=== PATIENT | female | born 1990 | race Caucasian/White ===

== ENCOUNTER 2021-09-02 19:00 | Outpatient (CLI) | payer OTHER, SELFPAY ==
[2021-09-02 19:58] LABS: Influenza A QL RT-PCR Negative (Negative); Influenza B QL RT-PCR Negative (Negative); SARS-CoV-2 RNA PCR Negative (Negative)
== END 2021-09-02 19:01 | disposition home or self-care (01) ==
LOC: CHSLAB 19:04
PROVIDERS: PCP Internal Medicine; Visit Provider Internal Medicine
DX: J06.9 Acute upper respiratory infection, unspecified (principal); Z20.822 Contact with and (suspected) exposure to COVID-19
CPT/HCPCS: 87081; 87502; 87880; C9803; U0003; U0005

== ENCOUNTER 2021-12-03 17:13 | Emergency (ER) | payer OTHER, SELFPAY ==
[2021-12-03 17:21] VITALS: BP 135/95; PULSE 89; RESP 16; TEMP 36.6; O2SAT 97
--- NOTE | 2021-12-03 17:34 | ED.URI ---
HPI - URI/Sore Throat General Chief Complaint: Upper Respiratory Infection Stated Complaint: Cough/Sore Throat Time Seen by Provider: 12/03/21 17:34 Source: patient Mode of arrival: ambulatory Limitations: no limitations History of Present Illness HPI Narrative: 30-year-old female presents with cough, fatigue, congestion, headaches, body aches since yesterday. Reports possible fever but she did not check her temperature. Started taking TheraFlu today. Denies shortness of breath and chest pain. Reviewed and negative except as noted above. Related Data Home Medications Medication Instructions Recorded Confirmed No Home Medications 07/22/19 10/07/19 Allergies Allergy/AdvReac Type Severity Reaction Status Date / Time No Known Allergies Allergy Verified 12/03/21 17:46 Review of Systems Review of Systems: CONSTITUTIONAL: Reports fever, chills, or sweats. EYES: Denies visual changes, redness, or discharge. ENT: Reports rhinorrhea, congestion, sore throat. Denies otalgia. CARDIOVASCULAR: Denies chest pain, palpitations, or edema. RESPIRATORY: Reports cough. Denies dyspnea. GASTROINTESTINAL: Denies abdominal pain, nausea, vomiting, or diarrhea. GENITOURINARY: Denies dysuria or hematuria. SKIN: Denies rash or itching. MUSCULOSKELETAL: Denies back pain, joint pain, or myalgia. NEUROLOGIC: Reports headache. Denies numbness, or weakness. PSYCHIATRIC: Denies anxiety or depression. All other systems reviewed are negative, except as documented in HPI. PMFSH Comments At time of signature, agree with nursing past medical, surgical, social and family history. There is no relevant family history pertinent to the presenting complaint. Exam Narrative: GENERAL: This is a well-nourished, well-developed patient. Patient ill-appearing but in no distress. HEAD: normocephalic, atraumatic. EYES: PERRL. Sclera clear/white. Vision is grossly intact. EARS: External ears normal, auditory canals clear and without drainage, TMs normal without perforation. Hearing grossly intact. NOSE: External nose normal, clear nasal drainage. THROAT: Mucous membranes moist, mild erythema to posterior pharynx. NECK: Neck supple, non-tender without lymphadenopathy, masses or thyromegaly. CARDIOVASCULAR: Regular rate and rhythm without murmurs, gallops, or rubs. RESPIRATORY: Clear to auscultation. Breath sounds equal bilaterally. No wheezes, rales, or rhonchi. SKIN: warm, Dry, intact with no suspicious lesions or rash, good texture and turgor. NEURO: awake, alert, and oriented to person, place and time. There were no obvious focal neurologic abnormalities. EXTREMITIES: Normal range of motion. Course Course Level of Care: Express Care Visit Vital Signs Vital signs: Vital Signs Temperature 36.6 C 12/03/21 17:21 Pulse Rate 89 12/03/21 17:21 Respiratory Rate 16 12/03/21 17:21 Blood Pressure 135/95 H 12/03/21 17:21 Pulse Oximetry 97 12/03/21 17:21 Temperature 36.6 C 12/03/21 17:21 Pulse Rate 89 12/03/21 17:21 Respiratory Rate 16 12/03/21 17:21 Blood Pressure 135/95 H 12/03/21 17:21 Pulse Oximetry 97 12/03/21 17:21 Reviewed MDM - URI/Sore Throat MDM Narrative Medical decision making narrative: Patient is aware of diagnosis, understands and agrees to treatment plan. Anticipatory guidance given. Patient agrees to follow-up as directed and is aware of reasons to seek care at the emergency department. Portions of this record may have been created with voice recognition software Differential Diagnosis Differential diagnosis: Likely upper respiratory infection, sinusitis, viral infection, influenza and pharyngitis Lab Data Labs: Influenza A Screen Positive Reference Range: Negative Influenza B Screen Negative Reference Range: Negative Discharge Plan Discharge Clinical Impression: Inf
== END 2021-12-03 17:57 | disposition home or self-care (01) ==
PROVIDERS: Emergency Provider Nurse Practitioner Family
DX: J10.1 Influenza due to other identified influenza virus with other respiratory manifestations (principal); Z85.820 Personal history of malignant melanoma of skin
CPT/HCPCS: 87804; 99213; G0463

== ENCOUNTER 2022-03-30 18:30 | Emergency (ER) | payer OTHER, SELFPAY ==
[2022-03-30 18:40] VITALS: BP 130/91; PULSE 83; RESP 16; TEMP 36.4; O2SAT 98
--- NOTE | 2022-03-30 19:02 | ED.GENADULT ---
HPI - General Adult General Chief complaint: Nausea/Vomiting/Diarrhea Stated complaint: Diarhea, headache, stomach pains Source: patient Mode of arrival: ambulatory Limitations: no limitations History of Present Illness HPI narrative: Patient presents for evaluation of sick symptoms after recent COVID exposure. She indicates she was exposed to COVID 3 days ago. She now reports headache and diarrhea as of yesterday. She also has fatigue. No fever, chills, nausea, vomiting, sore throat, cough, shortness of breath. Her son is here being evaluated for sore throat and sinus congestion. No personal hx of COVID. She has received her COVID vaccination. She has tried Peptobismol and immodium which she thinks may be helping. No additional complaints or concerns. Related Data Home Medications Medication Instructions Recorded Confirmed bupropion HCl 150 mg 24 hr tablet, 150 mg PO DAILY 03/30/22 03/30/22 extended release fluoxetine 10 mg capsule 10 mg PO DAILY 03/30/22 03/30/22 Allergies Allergy/AdvReac Type Severity Reaction Status Date / Time No Known Allergies Allergy Verified 12/03/21 17:46 Review of Systems Review of Systems: CONSTITUTIONAL: Reports fatigue. Denies fever, chills, or sweats. EYES: Denies visual changes, redness, or discharge. ENT: Denies rhinorrhea, congestion, sore throat, or otalgia. CARDIOVASCULAR: Denies chest pain, palpitations, or edema. RESPIRATORY: Denies cough or dyspnea. GASTROINTESTINAL: Reports diarrhea. Denies abdominal pain, nausea, vomiting GENITOURINARY: Denies dysuria or hematuria. SKIN: Denies rash or itching. MUSCULOSKELETAL: Denies back pain, joint pain, or myalgia. NEUROLOGIC: Reports headache. Denies numbness, dizziness, or weakness. PSYCHIATRIC: Denies anxiety or depression. [facility] S[facility] TO [facility] Past Medical History Medical History (Updated 03/30/22 @ 19:43 by Mike Arguelles, KESHIA, CHIKIS) No pertinent past medical history Surgical History Surgical History No pertinent past surgical history Family History Family History Mother Family history non-contributory Social History Social History Alcohol intake: never Substance use: never Living arrangements: with family Gender identity (if verbalized by the patient): Female Sexual Orientation (if Verbalized by the Patient): Straight or Heterosexual Spiritual care concerns: No Exam Narrative: GENERAL: Well-appearing, well-nourished, and in no acute distress. HEAD: Normocephalic, atraumatic. EYES: PERRLA and EOMI. ENT: Nares clear, no rhinorrhea or epistaxis. Mucous membranes moist. Oropharynx without tonsillar hypertrophy exudate or other lesions. Bilateral TMs pearly davis nonbulging NECK: Supple. No adenopathy or masses. No carotid bruits or JVD CHEST: Clear to auscultation. No respiratory distress. No wheezes rales or rhonchi HEART: Regular rate and rhythm. No murmur heard. Normal peripheral pulses. ABDOMEN: Soft, nontender, nondistended, normal active bowel sounds. EXTREMITIES: Normal range of motion. No edema. SKIN: Warm, dry, no rash. NEURO: No focal deficits. Alert and oriented x3. PSYCH: Normal mood and affect. Course Course Emergency Course: This is a 31-year-old female who presented with reports of headache and diarrhea. She was recently exposed to COVID. Her son is being evaluated here and tested positive for COVID. Patient's COVID here was negative but I think that this is a false negative or perhaps too early for it to show as positive. History and clinical presentation is consistent with COVID. I will write her prescription for paxlovid that and advised that she repeat her COVID test tomorrow and the next day. She is only to fill and start medication if she tests positive for COVID tomorrow or next day. Remain off of w
== END 2022-03-30 19:48 | disposition home or self-care (01) ==
PROVIDERS: Emergency Provider Nurse Practitioner
DX: Z20.822 Contact with and (suspected) exposure to COVID-19 (principal)
CPT/HCPCS: 87426; 99213; C9803; G0463

== ENCOUNTER 2022-10-24 18:46 | Emergency (ER) | payer OTHER, SELFPAY ==
[2022-10-24 18:56] VITALS: BP 138/89; PULSE 76; RESP 16; TEMP 36.4; O2SAT 98
--- NOTE | 2022-10-24 19:10 | ED.URI ---
HPI - URI/Sore Throat General Chief Complaint: Upper Respiratory Infection Stated Complaint: sore throat Source: patient and RN notes reviewed History of Present Illness HPI Narrative: 31-year-old female presents to urgent care with complaints of sore throat that started last night and got worse this morning. Patient states she has been spending most of her day in bed drinking tea and sucking on a throat lozenge with moderate relief. Patient denies any fevers, chills, vomiting, diarrhea, chest pain, or shortness of breath. Patient states she has a slight tension headache but nothing significant. Related Data Home Medications Medication Instructions Recorded Confirmed bupropion HCl 150 mg 24 hr tablet, 150 mg PO DAILY 03/30/22 03/30/22 extended release pantoprazole 40 mg tablet,delayed mg PO 10/24/22 release Allergies Allergy/AdvReac Type Severity Reaction Status Date / Time No Known Allergies Allergy Verified 12/03/21 17:46 Review of Systems Review of Systems: CONSTITUTIONAL: Denies fever, chills, or sweats. EYES: Denies visual changes, redness, or discharge. ENT: Reports sore throat CARDIOVASCULAR: Denies chest pain, palpitations, or edema. RESPIRATORY: Slight cough GASTROINTESTINAL: Denies abdominal pain, nausea, vomiting, or diarrhea. GENITOURINARY: Denies dysuria or hematuria. SKIN: Denies rash or itching. MUSCULOSKELETAL: Denies back pain, joint pain, or myalgia. NEUROLOGIC: Reports headache [facility] Past Medical History Medical History (Updated 10/24/22 @ 19:16 by Dixie Mcgovern, JOHN) No pertinent past medical history Surgical History Surgical History No pertinent past surgical history Family History Family History Mother Family history non-contributory Social History Social History Alcohol intake: never Substance use: never Living arrangements: with family Gender identity (if verbalized by the patient): Female Sexual Orientation (if Verbalized by the Patient): Straight or Heterosexual Spiritual care concerns: No Comments At the time of my signature, I reviewed and agree with the nursing past medical, surgical, social, and family history. There is no relevant family history pertinent to the patient complaint. Exam Narrative: GENERAL: This is a well-nourished, well-developed patient, in no apparent distress. HEAD: normocephalic, atraumatic. EYES: PERRL. Sclera clear/white. Vision is grossly intact. EARS: External ears normal, auditory canals clear and without drainage, TMs normal without perforation. Hearing grossly intact. NOSE: External nose normal with no obvious nasal discharge, nares without redness, no rhinorrhea. THROAT: Mucous membranes moist, posterior pharynx clear. NECK: Neck supple, non-tender without lymphadenopathy, masses or thyromegaly. CARDIOVASCULAR: Regular rate and rhythm without murmurs, gallops, or rubs. RESPIRATORY: Clear to auscultation. Breath sounds equal bilaterally. No wheezes, rales, or rhonchi. GASTROINTESTINAL: Abdomen soft, non-tender, nondistended. Bowel sounds are active. No hepato-splenomegaly, or palpable masses. No guarding. SKIN: warm, intact with no suspicious lesions or rash, good texture and turgor. NEURO: awake, alert, and oriented to person, place and time. There were no obvious focal neurologic abnormalities. Course Course Level of Care: Express Care Visit Vital Signs Vital signs: Vital Signs Temperature 97.6 F 10/24/22 18:56 Pulse Rate 76 10/24/22 18:56 Respiratory Rate 16 10/24/22 18:56 Blood Pressure 138/89 10/24/22 18:56 Pulse Oximetry 98 10/24/22 18:56 Oxygen Delivery Room Air 10/24/22 18:56 Temperature 97.6 F 10/24/22 18:56 Pulse Rate 76 10/24/22 18:56 Respiratory Rate 16 10/24/22 18:56 Blood Pressure
== END 2022-10-24 19:20 | disposition home or self-care (01) ==
PROVIDERS: Emergency Provider Nurse Practitioner Family; PCP Internal Medicine
DX: J02.9 Acute pharyngitis, unspecified (principal)
CPT/HCPCS: 87081; 87880; 99213; G0463

== ENCOUNTER 2023-11-09 15:38 | Emergency (ER) | payer OTHER, SELFPAY ==
[2023-11-09 15:44] VITALS: BP 146/86; PULSE 117; RESP 16; TEMP 37.4; O2SAT 100
--- NOTE | 2023-11-09 16:35 | ED.URI ---
HPI - URI/Sore Throat General Chief Complaint: Upper Respiratory Infection Stated Complaint: right ear History of Present Illness HPI Narrative: Pt is a 32 y/o female, presents to with one week hx of uri syptoms that began with nasal congestion, rhinorrhea and post nasal drip. she has a mild cough that is non productive. She denies associated fevers or chills and she has no known sick contacts or COV exposures. today she woke with muffled hearing in the right ear without associated otorrhea or otalgia. She is scheduled to fly out tomorrow and then take a cruise and wanted to ensure she was not contagious before departing, prompting her visit. She denies chance of . she is not taking any medications for symptom relief Related Data Home Medications Medication Instructions Recorded Confirmed bupropion HCl 150 mg 24 hr tablet, 150 mg PO DAILY 03/30/22 11/09/23 extended release pantoprazole 40 mg tablet,delayed 40 mg PO DAILY 10/24/22 11/09/23 release Allergies Allergy/AdvReac Type Severity Reaction Status Date / Time No Known Allergies Allergy Verified 11/09/23 16:06 Review of Systems ENT: Comments: refer to HPI Respiratory: Comments: refer to HPI Gastrointestinal: Comments: Diarrhea started last HS, no diarrhea today. No NV, no hematochezia or melena. [facility] Past Medical History Medical History (Updated 11/09/23 @ 16:41 by KONRAD SeniorP) No pertinent past medical history Surgical History Surgical History No pertinent past surgical history Family History Family History Mother Family history non-contributory Social History Social History Alcohol intake: never Substance use: never Living arrangements: with family Gender identity (if verbalized by the patient): Female Sexual Orientation (if Verbalized by the Patient): Straight or Heterosexual Spiritual care concerns: No Exam Const: General: healthy appearing, no acute distress and alert Nutritional Appearance: well nourished and obese Orientation/consciousness: patient oriented x3 Limitations: no limitations HENMT: Head: normal to inspection Ears: external ears normal and TM abnormal (bilateral serous effusion, no erythema or purulence noted. the) Face and sinus: normal facial exam and sinuses nontender Mouth: Yes Normal oral and palatal mucosa present, Yes lip normal and Yes moist mucous membranes Throat: posterior oropharynx normal and uvula midline Other: right TM is bulging, the left tm is retracted. Eyes: Conjunctivae: conjunctivae normal Pupils: Equal, round and reactive pupils present EOM: EOMs intact bilaterally Neck: Neck: normal visual inspection, no lymphadenopathy and no meningeal signs Resp: Effort & Inspection: normal respiratory effort Auscultation: clear to auscultation bilaterally Cardio: Rate: regular rate Rhythm: regular rhythm GI: GI Palp: Yes Soft to palpation, No Tenderness to palpation present (GI), No Guarding due to palpation present (GI), No Rigid due to palpation, No Hernia present, No Palpable mass present and No Rebound tenderness present Back/Spine/Pelvis: Back: no CVA tenderness Skin: General skin exam: normal color Rashes: no rashes Wounds: no wounds Neuro: General: patient oriented x3, moves all extremities, no meningeal signs, no focal motor deficits and CN's II-XI intact bilaterally Cranial nerves: Yes Nystagmus not present Speech: normal speech Extrem: General: normal to inspection Course Course Emergency Course: influenza, COV and strep negative Level of Care: Express Care Visit ([id number]) Vital Signs Vital signs: Vital Signs Temperature 37.4 C 11/09/23 15:44 Pulse Rate 117 H 11/09/23 15:44 Respiratory Rate 16 11/09/23 15:44 Blood Pressure
== END 2023-11-09 16:45 | disposition home or self-care (01) ==
PROVIDERS: Emergency Provider Nurse Practitioner Family; PCP Internal Medicine
DX: H65.01 Acute serous otitis media, right ear (principal); Z20.822 Contact with and (suspected) exposure to COVID-19
CPT/HCPCS: 87081; 87426; 87804; 87880; 99213; G0463

== ENCOUNTER 2023-11-25 10:57 | Outpatient (CLI) | payer OTHER, MEDICAID, SELFPAY ==
[2023-11-25 11:25] LABS: Basophils Absolute Auto 0.03 K/mm3 (0.00-0.10); Basophils Percent Auto 0.4 % (0.0-1.0); Eosinophils Absolute Auto 0.13 K/mm3 (0.02-0.50); Eosinophils Percent Auto 1.6 % (1.0-6.0); Hemoglobin 10.6 g/dL (12.0-15.0); Immature Granulocyte Absolute 0.08 K/mm3 (0.00-0.00); Immature Platelet Fraction Pct 5.1 % (1.0-7.0); Lymphocytes Absolute Auto 2.58 K/mm3 (1.10-4.50); Lymphocytes Percent Auto 32.5 % (18.0-42.0); Mean Corpuscular HGB Conc 30.3 g/dL (32-36); Mean Corpuscular Hemoglobin 24.2 pg (27.0-31.0); Mean Corpuscular Volume 79.9 fL (78.0-102.0); Mean Platelet Volume 10.2 fl (9.2-11.8); Monocytes Absolute Auto 0.39 K/mm3 (0.10-0.90); Monocytes Percent Auto 4.9 % (2.0-11.0); Neutrophils Absolute Auto 4.73 K/mm3 (1.70-7.20); Neutrophils Percent Auto 59.6 % (50.0-70.0); Platelet Count Result 288 K/mm3 (150-420); Red Blood Count 4.38 M/mm3 (4.20-5.40); Red Cell Distribution Width 17.5 % (11.6-14.4); White Blood Count 7.9 K/mm3 (4.8-10.8)
[2023-11-25 11:36] LABS: Appearance Urine Clear (Clear); Bilirubin Urine Negative (Negative); Blood Urine 2+ (Negative); Color Urine Light Yellow (Yellow); Glucose Urine UA Negative (Negative); Ketones Urine Negative (Negative); Leukocyte Esterase Ur Negative (Negative); Nitrate Urine Negative (Negative); Protein Urine Negative (Negative); Specific Grav Ur <= 1.005 (1.010-1.020); Urobilinogen Urine 0.2 mg/dL (0.2-1.0)
[2023-11-25 11:51] LABS: Alanine Aminotransferase 44 U/L (14-59); Albumin Level 4.3 g/dL (3.4-5.0); Alkaline Phosphatase 75 U/L (46-116); Anion Gap 13 mmol/L (8-16); Aspartate Amino Transferase 26 U/L (15-37); Bilirubin,Total 0.7 mg/dL (0.00-1.00); Blood Urea Nitrogen 10 mg/dL (7-18); Calcium 8.8 mg/dL (8.5-10.1); Carbon Dioxide 26 mmol/L (21-32); Chloride 102 mmol/L (98-108); Cholesterol 195 mg/dL (0-200); Estimated Glomerular Filt Rate > 60; Glucose 97 mg/dL (70-99); HDL Direct 53 mg/dL (40-60); LDL Cholesterol Calculated 96 mg/dL (<130); Osmolality Calculated 291 mOsm/kg (285-295); Potassium 4.2 mmol/L (3.5-5.1); Sodium 141 mmol/L (136-145); Thyroid Stimulating Hormone 2.69 uIU/mL (0.36-3.74); Total Protein 8.2 g/dL (6.4-8.2); Triglycerides 232 mg/dL (0-150)
[2023-11-25 12:03] LABS: Add Urine Microscopic? YES; Bacteria Urine 1+ /hpf; Squamous Epithelial Cell Urine Few /hpf (Few); WBC Urine None seen /hpf (0-3)
== END 2023-11-25 10:58 | disposition home or self-care (01) ==
PROVIDERS: PCP Internal Medicine; Visit Provider Internal Medicine
DX: Z00.00 Encounter for general adult medical examination without abnormal findings (principal)
CPT/HCPCS: 36415; 80053; 80061; 81001; 84443; 85025; 85055

== ENCOUNTER 2024-05-31 19:17 | Emergency (ER) | payer OTHER, SELFPAY ==
[2024-05-31 19:24] VITALS: BP 150/86; PULSE 102; RESP 16; TEMP 36.1; O2SAT 99
--- NOTE | 2024-05-31 20:18 | ED.URI ---
HPI - URI/Sore Throat General Chief Complaint: Upper Respiratory Infection Stated Complaint: Cough/Diarrhea Time Seen by Provider: 05/31/24 20:07 Source: patient and RN notes reviewed Mode of arrival: ambulatory Limitations: no limitations History of Present Illness HPI Narrative: Patient presents today with 2 week history of productive cough and postnasal drainage. Denies fever, congestion, rhinorrhea, sore throat. No history of asthma or COPD. She has tried no [id number] treatment prior to arrival. Patient works at a local [employer] and has to wear a respirator at work every day. States this is making it difficult and causes her to have coughing episodes. Related Data Home Medications Medication Instructions Recorded Confirmed bupropion HCl 150 mg 24 hr tablet, 150 mg PO DAILY 03/30/22 11/09/23 extended release pantoprazole 40 mg tablet,delayed 40 mg PO DAILY 10/24/22 11/09/23 release Allergies Allergy/AdvReac Type Severity Reaction Status Date / Time No Known Allergies Allergy Verified 11/09/23 16:06 Review of Systems Review of Systems: CONSTITUTIONAL: Denies body aches, fever, chills, or sweats. EYES: Denies visual changes, redness, or discharge. ENT: Denies rhinorrhea, congestion, sore throat, or otalgia.+ postnasal drip CARDIOVASCULAR: Denies chest pain, palpitations, or edema. RESPIRATORY: Denies dyspnea.+ cough GASTROINTESTINAL: Denies abdominal pain, nausea, vomiting, or diarrhea. GENITOURINARY: Denies dysuria or hematuria. SKIN: Denies rash, itching, or wounds. MUSCULOSKELETAL: Denies back pain, joint pain, or myalgia. NEUROLOGIC: Denies headache, numbness, tingling, or weakness. PSYCH: Denies depression or anxiety. [facility] Past Medical History Medical History No pertinent past medical history Surgical History Surgical History No pertinent past surgical history Family History Family History Mother Family history non-contributory Social History Social History Alcohol intake: never Substance use: never Living arrangements: with family Gender identity (if verbalized by the patient): Female Sexual Orientation (if Verbalized by the Patient): Straight or Heterosexual Spiritual care concerns: No Comments At time of signature, I have reviewed and agree with nursing past medical, surgical, social and family history unless otherwise noted. Please see nursing chart for further information. There is no relevant family history pertinent to the presenting complaint Exam Narrative: GENERAL: Well-appearing, well-nourished, and in no acute distress. HEAD: Normocephalic, atraumatic. EYES: EOMI. No redness or drainage. Conjunctivae normal. ENT: Mucous membranes pink and moist. Nares clear. No rhinorrhea. TMs normal bilaterally. Throat normal. Uvula midline. NECK: Normal AROM. Supple. No lymphadenopathy. CHEST: No respiratory distress. Expiratory wheezing in the right upper and bilateral lower lobes HEART: Regular rate and rhythm. No murmur appreciated. EXTREMITIES: Normal range of motion. No edema. SKIN: Warm, dry, no rash. Capillary refill normal. Normal skin turgor. NEURO: No focal deficits. Alert and oriented x3. Gait steady. PSYCH: Normal affect. No signs of depression or anxiety. Course Course Level of Care: Express Care Visit Vital Signs Vital signs: Vital Signs Temperature 97.0 F L 05/31/24 19:24 Pulse Rate 102 H 05/31/24 19:24 Respiratory Rate 16 05/31/24 19:24 Blood Pressure 150/86 H 05/31/24 19:24 Pulse Oximetry 99 05/31/24 19:24 Oxygen Delivery Room Air 05/31/24 19:24 Temperature 97.0 F L 05/31/24 19:24 Pulse Rate 102 H 05/31/24 19:24 Respiratory Rate 16 05/31/24 19:24 B
== END 2024-05-31 20:23 | disposition home or self-care (01) ==
PROVIDERS: Emergency Provider Nurse Practitioner; PCP Internal Medicine
DX: J40 Bronchitis, not specified as acute or chronic (principal); J32.9 Chronic sinusitis, unspecified
CPT/HCPCS: 99213; G0463

== ENCOUNTER 2024-10-09 11:21 | Emergency (ER) | payer OTHER, SELFPAY ==
[2024-10-09 11:31] VITALS: BP 143/87; PULSE 90; RESP 18; TEMP 36.5; O2SAT 100
[2024-10-09 11:49] LABS: EDSTREPNEGPOS1 Negative (Negative)
--- NOTE | 2024-10-09 11:58 | ED_ITS ---
HPI - General Adult General Chief complaint: Upper Respiratory Infection Stated complaint: Sore Throat/Left Ear Problem/Right Eye/Cough Source: patient Mode of arrival: ambulatory Limitations: no limitations History of Present Illness HPI narrative: Patient presents for evaluation of sick symptoms for last 4 days. Symptoms include cough, sinus congestion, thick yellow drainage, sore throat, muffled hearing and left ear pain. No fever, nausea, vomiting, diarrhea or SOB. She does vape. She is not aware of any sick contacts. She has tried flonase and sudafed for her symptoms. Related Data Home Medications ?Medication ?Instructions ?Recorded ?Confirmed ?Last Taken ?Type bupropion HCl 150 mg 24 hr tablet, 150 mg PO DAILY 03/30/22 11/09/23 Unknown History extended release pantoprazole 40 mg tablet,delayed 40 mg PO DAILY 10/24/22 11/09/23 Unknown History release Allergies Allergy/AdvReac Type Severity Reaction Status Date / Time No Known Allergies Allergy Verified 11/09/23 16:06 Review of Systems Review of Systems: CONSTITUTIONAL: Denies fever, chills, or sweats. EYES: Denies visual changes, redness, or discharge. ENT: Reports sinus congestion,thick yellow nasal drainage, muffled hearing, sore throat, left-sided otalgia CARDIOVASCULAR: Denies chest pain, palpitations, or edema. RESPIRATORY: Reports cough. Denies shortness of breath. GASTROINTESTINAL: Denies abdominal pain, nausea, vomiting, or diarrhea. GENITOURINARY: Denies dysuria or hematuria. SKIN: Denies rash or itching. MUSCULOSKELETAL: Denies back pain, joint pain, or myalgia. NEUROLOGIC: Denies headache, numbness, dizziness, or weakness. PSYCHIATRIC: Denies anxiety or depression. [facility] Past Medical History Medical History No pertinent past medical history Surgical History Surgical History No pertinent past surgical history Family History Family History Mother Family history non-contributory Social History Social History Smoking status: Current every day smoker Tobacco type: e-cigarettes/vaping Alcohol intake: never Substance use: never Living arrangements: with family Gender identity (if verbalized by the patient): Female Sexual Orientation (if Verbalized by the Patient): Straight or Heterosexual Spiritual care concerns: No Exam Narrative: GENERAL: Well-appearing, well-nourished, and in no acute distress. HEAD: Normocephalic, atraumatic. EYES: PERRLA and EOMI. ENT: Nares clear, no rhinorrhea or epistaxis. Mucous membranes moist. Oropharynx without tonsillar hypertrophy exudate or other lesions. Left tympanic membrane is erythematous and bulging. Right tympanic membrane is mildly erythematous. NECK: Supple. No adenopathy or masses. No carotid bruits or JVD CHEST: Clear to auscultation. No respiratory distress. No wheezes rales or rhonchi HEART: Regular rate and rhythm. No murmur heard. Normal peripheral pulses. ABDOMEN: Soft, nontender, nondistended, normal active bowel sounds. EXTREMITIES: Normal range of motion. No edema. SKIN: Warm, dry, no rash. NEURO: No focal deficits. Alert and oriented x3. PSYCH: Normal mood and affect. Course Course Emergency Course: This is a 33-year-old female presented for evaluation of sick symptoms. Strep was negative. Will send strep culture. She meets criteria for bacterial sinusitis based presence of thick yellow nasal drainage. She also has evidence of otitis media on the left. Will treat with Augmentin and Medrol Dosepak. Increase hydration. Zcre-krn-pawbxni agents for symptom management. Follow up with primary provider. Go to the ER for worsening symptoms. Patient in agreement with plan of care. Level of Care: Express Care Visit Vital Signs Vital signs: Vital Signs Temperature 36.5 C 10/09/24 11:31 Pulse Rate 90 10/09/24 11:31 Respiratory Rate 18 10/09/24 11:31 Blood Pressure 143/87 H 10/09/24 11:31 Pulse Oximetry 100 10/09/24 11:31 Oxygen Delivery Room Air 10/09/24 11:31 Temperature 36.5 C 10/09/24 11:31 Pulse Rate 90 10/09/24 11:31 Respiratory Rate 18 10/09/24 11:31 Blood Pressure 143/87 H 10/09/24 11:31 Pulse Oximetry 100 10/09/24 11:31 Oxygen Delivery Room Air 10/09/24 11:31 Medical Decision Making Vital Signs Vital Signs: Vital Signs Temperature 36.5 C 10/09/24 11:31 Pulse Rate 90 10/09/24 11:31 Respiratory Rate 18 10/09/24 11:31 Blood Pressure 143/87 H 10/09/24 11:31 Pulse Oximetry 100 10/09/24 11:31 Oxygen Delivery Room Air 10/09/24 11:31 Temperature 36.5 C 10/09/24 11:31 Pulse Rate 90 10/09/24 11:31 Respiratory Rate 18 10/09/24 11:31 Blood Pressure 143/87 H 10/09/24 11:31 Pulse Oximetry 100 10/09/24 11:31 Oxygen Delivery Room Air 10/09/24 11:31 Lab Data Labs: Lab Results 10/09/24 Range/Units 11:47 POC Grp A Strep Screen Negative (Negative) Discharge Plan Discharge Clinical Impression: Sinusitis, Acute otitis media, left Patient Disposition: Home, Self-Care Condition: Stable Instructions: Antibiotic Form, Sinusitis (ED), Ear Infection (AC) Patient Language: Zambian Prescriptions: New amoxicillin-pot clavulanate 875-125 mg tablet 1 tablet PO Q12H Qty: 20 0RF methylprednisolone [Medrol (Rajat)] 4 mg tablets,dose pack See Rx Instructions .ROUTE .COMPLEX Qty: 21 0RF Rx Instructions: for 6 days No Action pantoprazole 40 mg tablet,delayed release (DR/EC) 40 mg PO DAILY benzonatate 200 mg capsule 200 mg PO TID PRN (Reason: cough) Qty: 20 0RF albuterol sulfate 90 mcg/actuation HFA aerosol inhaler 2 inh inhalation Q4-6H PRN (Reason: shortness of breath or wheezing) Qty: 8.5 0RF amoxicillin-pot clavulanate 875-125 mg tablet 1 tablet PO Q12H 7 Days Qty: 14 0RF (DME) BreatheRite MDI Spacer Spacer See Rx Instructions .ROUTE .MEDSUPPLY Qty: 1 0RF Rx Instructions: As directed prednisone 50 mg tablet 50 mg PO DAILY 5 Days Qty: 5 0RF bupropion HCl 150 mg tablet extended release 24 hr 150 mg PO DAILY prednisone 20 mg tablet 40 mg PO DAILY 5 Days Qty: 10 0RF Follow-up/Referrals: Андрей Fiore MD [Physician] - Stand Alone Forms: Work/School Release IP Time of Disposition: 11:55
--- OUTSIDE RECORDS SUMMARY | 2024-10-09 12:32 | XMS_ITS | Continuity of Care Document ---
Author Name Faribaxin Anuradha Address [address] [place] [address] Organization Unknown Address [address] [place] [address] Medications No known medications Problems No known problems
--- OUTSIDE RECORDS SUMMARY | 2024-10-09 12:32 | XMS_ITS | Clinical Summary ---
Author Organization [facility] Address [address] [place] [address]. [place], [place] [address] [place] [id number] Care Team Providers Care Trial Lawyer Name Role Phone Jose Rey MD Primary Care Provider [phone] Allergies No known active allergies Medications No known medications Family History Medical History Relation Comments None Father None Mother Relation Status Comments Father Alive Mother Alive Social History Tobacco Use Types Packs/Day Years Used Date Smoking Tobacco: Never Smokeless Tobacco: Never Alcohol Use Standard Drinks/Week Comments Yes 0 (1 standard drink = 0.6 oz pur e alcohol) SOCIALLY Comments No Sex and Gender Information Value Date Recorded Sex Assigned at Not on file Legal Sex Female 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 Gender Identity Not on file Sexual Orientation Not on file Last Filed Vital Signs Vital Sign Reading Time Taken Comments Blood Pressure 147/89 08/01/2018 5:59 PM GINSENG FARMER Pulse 83 08/01/2018 5:59 PM GINSENG FARMER Temperature 37.4 ??C (99.4 ??F) 08/01/2018 5:59 PM CS T Respiratory Rate 18 08/01/2018 5:59 PM GINSENG FARMER Oxygen Saturation 96% 08/01/2018 5:59 PM GINSENG FARMER Inhaled Oxygen Concentration - - Weight 86.2 kg (190 lb) 08/01/2018 5:59 PM GINSENG FARMER Height 157.5 cm (5' 2 ) 08/01/2018 5:59 PM GINSENG FARMER Body Mass Index 34.75 08/01/2018 5:59 PM GINSENG FARMER Plan of Treatment Health Maintenance Due Date Last Done Comments Cervical Cancer Screening Pa p Smear (Age 30 to 64) Every 3 Years 1988 Annual Physical 12/23/1991 Hepatitis C 2006 DTaP, Tdap and Td Vaccines ( 1 - Tdap) 12/23/2007 Hepatitis B Vaccines (1 of 3 - 19+ 3-dose series) 12/23/2007 Cervical Cancer Screening Pa p with HPV Testing (Age 30 to 64) Every 5 Years 2018 Cervical Cancer Screening with HPV 2018 COVID-19 Vaccine (2023-2 5 season) 2024 Influenza Adult (#1) 2024 HPV Vaccines Aged Out No longer eligi ble based on patient's age to complete this topic Meningococcal B Vaccine Aged Out No l onger eligible based on patient's age to complete this topic Meningococcal Vaccine Aged Out No mireya augustus eligible based on patient's age to complete this topic Pneumococcal Vaccine: Pediat rics (0 to 5 Years) and At-Risk Patients (6 to 64 Years) Aged Out No longer eligible b ased on patient's age to complete this topic RSV Immunizations Under 20 Months Aged Out No longer eligible based on patient's age to complete this topic Insurance Care Teams Trial Lawyer Relationship Specialty Start Date End Date Jose Rey MD [address] [place] [address] PCP - General INTERNAL MEDICINE 08/01/18
--- OUTSIDE RECORDS SUMMARY | 2024-10-09 12:32 | XMS_ITS | Clinical Summary ---
Author Organization [facility] Address [address] [place] [phone] Phone Care Team Providers Care Tanning Salon Attendant Name Role Phone Jose Rey MD Primary Care Provider [phone] Allergies No known active allergies Medications Levonorgestrel (MIRENA, 52 MG,) 20 MCG/24HR IUD by Intrauterine route. Active Active Problems No known active problems Social History Tobacco Use Types Packs/Day Years Used Date Smoking Tobacco: Some Days Smokeless Tobacco: Never Alcohol Use Standard Drinks/Week Comments Yes 0 (1 standard drink = 0.6 oz pur e alcohol) social Comments No Sex and Gender Information Value Date Recorded Sex Assigned at Not on file Legal Sex Female 10:31 AM CDT Gender Identity Not on file Sexual Orientation Not on file Last Filed Vital Signs Vital Sign Reading Time Taken Comments Blood Pressure 136/80 03/01/2019 10:46 AM CDT Pulse 72 03/01/2019 10:46 AM CDT Temperature 37.1 ??C (98.8 ??F) 03/01/2019 10:46 AM C DT Respiratory Rate 16 03/01/2019 10:46 AM CDT Oxygen Saturation 98% 03/01/2019 10:46 AM CDT Inhaled Oxygen Concentration - - Weight 88 kg (194 lb) 03/01/2019 10:46 AM CDT Height - - Body Mass Index - - Plan of Treatment Health Maintenance Due Date Last Done Comments Hepatitis C Virus (HCV) Screening 1988 TdaP Immunization 1988 Hepatitis B Immunization (1 of 3 - 19+ 3-dose series) 12/23/2007 Pap Smear 2009 Cervical Cancer Screening (CCS) 2018 HPV/Cotest 2018 Influenza Immunization (#1) 2024 SARS-COV-2 Immunization ( season) 2024 07/30/2021, 12/11/2020, 11/20/2020 Respiratory Syncytial Virus (RSV) Immunization (Adult) (1 - 1-dose 75+ series) 12/23/2063 Meningococcal Immunization (ACWY) Aged Out No longer eligible b ased on patient's age to complete this topic Pneumococcal Immunization Combined Aged Out No longer eligible b ased on patient's age to complete this topic Rotavirus Immunization Aged Out No lo nger eligible based on patient's age to complete this topic Care Teams Tanning Salon Attendant Relationship Specialty Start Date End Date Jose Rey MD [address] [place] [address] PCP - General Internal Medicine 03/01/19
--- OUTSIDE RECORDS SUMMARY | 2024-10-09 12:32 | XMS_ITS | Clinical Summary ---
Author Organization [facility] Address [id number] [place] [phone] Care Team Providers Care Rum Processing Operator Name Role Phone Jose Rey MD Primary Care Provider [phone] Social History Tobacco Use Types Packs/Day Years Used Date Smoking Tobacco: Never Assessed Comments Unknown Sex and Gender Information Value Date Recorded Sex Assigned at Not on file Legal Sex Female 8:30 AM CDT Gender Identity Not on file Sexual Orientation Not on file Plan of Treatment Health Maintenance Due Date Last Done Comments DTAP/TDAP/TD VACCINES (1 - Tdap) 12/23/2007 HEPATITIS B VACCINES (1 of 3 - 19+ 3-dose series) 12/23/2007 CERVICAL CANCER SCREENING 2018 INFLUENZA VACCINE (#1) 2024 HPV VACCINES Aged Out No longer eligi ble based on patient's age to complete this topic PNEUMOCOCCAL VACCINE 0-64 YEARS Aged Out No longer eligible based on patient's age to complete this topic Care Teams Rum Processing Operator Relationship Specialty Start Date End Date Jose Rey MD [address] [place] [address] PCP - General Internal Medicine 05/28/19
--- OUTSIDE RECORDS SUMMARY | 2024-10-09 12:32 | XMS_ITS | Continuity of Care Document ---
Author Name Anuradha Islas Address [address] [facility] [place] [address] Organization Unknown Address [address] [place], [place] [id number] [place] [address] Medications No known medications Problems No known problems
== END 2024-10-09 12:03 | disposition home or self-care (01) ==
PROVIDERS: Emergency Provider Nurse Practitioner
DX: J32.9 Chronic sinusitis, unspecified (principal); H66.92 Otitis media, unspecified, left ear; F17.290 Nicotine dependence, other tobacco product, uncomplicated
CPT/HCPCS: 87081; 87880; 99213; G0463

== ENCOUNTER 2025-01-29 19:09 | Emergency (ER) | payer OTHER, SELFPAY ==
--- OUTSIDE RECORDS SUMMARY | 2025-01-29 19:12 | XMS_ITS | Clinical Summary ---
Author Organization [facility] Address [address] [place] [phone] Phone Care Team Providers Care Coffee Grinder Name Role Phone Jose Rey MD Primary Care Provider [phone] Allergies No known active allergies Medications Levonorgestrel [...] 72 03/01/2019 10:46 AM CDT Temperature 37.1 C (98.8 F) 03/01/2019 10:46 AM CDT Respiratory Rate 16 03/01/2019 10:46 AM CDT [...] age to complete this topic Care Teams Coffee Grinder Relationship Specialty Start Date End Date Jose Rey MD [address] [place] [address] PCP - General Internal Medicine 03/01/19
--- OUTSIDE RECORDS SUMMARY | 2025-01-29 19:12 | XMS_ITS | Clinical Summary ---
Author Organization [facility] Address [id number] [place] [phone] Care Team Providers Care Farm Tractor Mechanic Name Role Phone Jose Rey MD Primary Care Provider [phone] Social History Tobacco Use Types Packs/Day Years [...] of 3 - 19+ 3-dose series) 12/23/2007 HPV/Cotest (21-29) 2009 CERVICAL CANCER SCREENING 2018 HPV/Cotest (30-65) 2018 PAP SMEAR 2018 INFLUENZA VACCINE (#1) 2024 HPV VACCINES Aged Out No longer eligi ble based on patient's age to complete this topic Care Teams Farm Tractor Mechanic Relationship Specialty Start Date End Date Jose Rey MD [address] [place] [id number] PCP - General Internal Medicine 05/28/19
[2025-01-29 19:16] VITALS: BP 154/92; PULSE 100; RESP 16; TEMP 36.9; O2SAT 100
[2025-01-29] MEDS: TETANUS,DIPHTHERIA,AC PERTUSSIS ADULT (0.5 ML) BOOSTRIX IM (19:49)
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
== END 2025-01-29 19:58 | disposition home or self-care (01) ==
PROVIDERS: Emergency Provider Nurse Practitioner; PCP Internal Medicine
DX: T25.222A Burn of second degree of left foot, initial encounter (principal); T31.0 Burns involving less than 10% of body surface; X12.XXXA Contact with other hot fluids, initial encounter; F17.290 Nicotine dependence, other tobacco product, uncomplicated; Z23 Encounter for immunization
CPT/HCPCS: 87070; 87075; 87181; 87205; 90471; 90715; 99213; G0463